=== PATIENT | male | born 1975 | race Caucasian/White ===

== ENCOUNTER → 2017-01-17 | Outpatient (CLI) | payer BC ==
[~2017-01-17] MED LIST: BUDE90AE IH; CIPR500T4 PO; CYCL10TA9 PO; Flexeril; IBUP-1773 PO; IBUP800T26 PO; NAPR-1071 PO; PRD20T PO; SULF-222 PO
== END ==
LOC: RAD 08:17
PROVIDERS: ATTEND Nurse Practitioner
DX: M54.12 Radiculopathy, cervical region (principal)

== ENCOUNTER → 2017-02-28 | Outpatient (CLI) | payer BC | LOC: RAD 08:02 | PROVIDERS: ATTEND Anesthesiology Pain Medicine | DX: Z53.29 Procedure and treatment not carried out because of patient's decision for other reasons (principal); M54.12 Radiculopathy, cervical region; M25.521 Pain in right elbow; M25.511 Pain in right shoulder ==

== ENCOUNTER 2017-03-19 11:10 | Emergency (ER) | payer BC ==
[~2017-03-19] VITALS: Ht 182.9 cm; Wt 108.9 kg
--- NOTE | 2017-03-19 11:32 | ED Cough/URI ---
General Chief Complaint: Cough/Cold/Flu Symptoms Stated Complaint: BODYACHES SOA COUGH FEVER NAUSEA Nursing Triage Note: AMB TO ROOM C/O COUGH, CONGESTION, FEVER,BODY ACHES SINCE SUN. Source: patient Exam Limitations: no limitations History of Present Illness Date Seen by Provider: Mar 19, 2017 Time Seen by Provider: 11:30 Initial Comments To ER with reports of a nonproductive cough, nasal congestion, body aches, MAXIMUM TEMPERATURE 102, nausea since 03/16/17. Has not seen primary care for this. He states that typically when the weather changes as it has been doing he gets pneumonia so that this is his concern Timing/Duration: this morning Severity/Quality: moderate Associated Symptoms: cough, fever/chills, muscle aches, nasal congestion, nasal drainage Allergies and Home Medications Allergies Uncoded Allergies: FESCUE GRASS (Allergy, Mild, 08/30/13) MUSHROOMS (Allergy, Unknown, 04/14/15) Home Medications No Active Prescriptions or Reported Meds Constitutional: see HPI, chills EENTM: see HPI Respiratory: see HPI, cough Genitourinary: no symptoms reported Musculoskeletal: no symptoms reported Skin: no symptoms reported Psychiatric/Neurological: No Symptoms Reported Hematologic/Lymphatic: No Symptoms Reported Past Hzkfteo-Jonwza-Bxhiod Hx Patient Social History Alcohol Use: Occasionally Uses Recreational Drug Use: No Smoking Status: Current Everyday Smoker Type Used: Cigarettes Recent Foreign Travel: No Contact w/Someone Who Travel: No Recent Infectious Disease Expo: No Recent Hopitalizations: No Seasonal Allergies Seasonal Allergies: No Surgeries History of Surgeries: Yes (HERNIA) Respiratory History of Respiratory Disorde: Yes (CHRONIC PNEUMONIA) Cardiovascular History of Cardiac Disorders: No Neurological History of Neurological Disord: No Gastrointestinal History of Gastrointestinal Di: No Musculoskeletal History of Musculoskeletal Dis: No Endocrine History of Endocrine Disorders: No Cancer History of Cancer: No Psychosocial History of Psychiatric Problem: No Physical Exam Vital Signs Vital Signs - First Documented 03/19/17 11:14 Temp 99.8 Pulse 92 Resp 18 B/P (MAP) 147/78 (101) Pulse Ox 98 O2 Delivery Room Air Capillary Refill : Less Than 3 Seconds General Appearance: WD/WN, no apparent distress Eyes: Bilateral Eye Normal Inspection, Bilateral Eye PERRL, Bilateral Eye EOMI HEENT: PERRL/EOMI, normal ENT inspection Neck: non-tender, full range of motion Respiratory: no respiratory distress, no accessory muscle use Cardiovascular: regular rate, rhythm, no murmur Gastrointestinal: normal bowel sounds, non tender, soft Extremities: normal range of motion, non-tender, normal inspection Neurologic/Psychiatric: alert, normal mood/affect, oriented x 3 Skin: normal color, warm/dry Laceration Repair : Suture Size: 5-0 Progress/Results/Core Measures Suspected Sepsis Recent Fever Within 48 Hours: No Infection Criteria Present: None New/Unexplained Altered Menta: No Sepsis Screen: No Definite Risk Sepsis Diagnosis: SIRS Temperature:99.8 Pulse: 92 Respiratory Rate: 18 Blood Pressure 147 /78 Mean: 101 Results/Orders Micro Results Microbiology 03/19/17 Influenza Types A,B Antigen (JARVSI) - Final, Complete My Orders Orders - BRE GOVEA APRN Influenza A And B Antigens (03/19/17 11:29) Chest Pa/Lat (2 View) (03/19/17 11:29) Vital Signs/I&O Vital Sign - Last 12Hours 03/19/17 11:14 Temp 99.8 Pulse 92 Resp 18 B/P (MAP) 147/78 (101) Pulse Ox 98 O2 Delivery Room Air Capillary Refill : Less Than 3 Seconds Blood Pressure Mean: 101 Departure Impression Impression: Primary Impression: Influenza-like illness Disposition: 01 HOME, SELF-CARE Condition: Stable Departure-Patient Inst. Decision time for Depature: 12:25 Referrals: [facility] [place] (PCP/Family) Primary Care Physician Patient Instructions: Flu Add. Discharge Instructions: 1. Tylenol and Motrin for any fevers 2. Drink plenty of fluids to stay hydrated 3. Expect symptoms to stay for about 5-7 days. Use the cough medication which will also help with nausea as directed. All discharge instructions reviewed with patient and/or family. Voiced understanding. Scripts Promethazine HCl/Codeine (Promethazine-Codeine Syrup) 118 Ml Syrup 5-7.5 ML PO Q6H Y for COUGH, #120 ML Prov: BRE GOVEA APRN 03/19/17 Work/School Note: Local Medical Staff Listing, Work Release Form Date Seen in the Emergency Department: Mar 19, 2017 Return to Work: Mar 22, 2017 BRE GOVEA APRN Mar 19, 2017 11:32
--- OUTSIDE RECORDS SUMMARY | 2017-03-19 12:01 | XMS REPORT | Continuity of Care Document ---
Author Author [facility] Organization [facility] Address Unknown Phone Unavailable Allergies Active Description Code Type Severity Reaction Onset Reported/Identified Relationship to Patient Clinical Status Yes FESCUE GRASS FESCUE GRASS Mild N/A 08/30/2013 Yes MUSHROOMS MUSHROOMS Unknown N/A 04/14/2015 Medications There is no data. Problems Date Dx Coded Attending Type Code Diagnosis Diagnosed By 08/30/2013 GAYATHRI RESENDEZ, RADHA Lacey Ot 682.3 CELLULITIS OF ARM 08/30/2013 RADHA TRINH MD Ot 782.0 SKIN SENSATION DISTURB 08/31/2013 RADHA TRINH MD Ot 729.5 PAIN IN LIMB 08/31/2013 RADHA TRINH MD Ot 782.0 SKIN SENSATION DISTURB 04/14/2015 BRE GOVEA APRN Ot F17.210 NICOTINE DEPENDENCE, CIGARETTES, UNCOMPL 04/14/2015 BRE GOVEA SHEET MILL SUPERVISOR Ot S61.211A LACERATION W/O FB OF L IDX FNGR W/O OLIVIA 04/14/2015 BRE GOVEA APRN Ot W26.0XXA CONTACT WITH KNIFE, INITIAL ENCOUNTER 04/14/2015 BRE GOVEA APRN Ot Y92.[address] 04/14/2015 BRE GOVEA SHEET MILL SUPERVISOR Ot Y99.8 OTHER EXTERNAL CAUSE STATUS 04/14/2015 BRE GOVEA APRN Ot Z23 ENCOUNTER FOR IMMUNIZATION 08/19/2015 BRYANT ZAMORA MD Ot F17.210 NICOTINE DEPENDENCE, CIGARETTES, UNCOMPL 08/19/2015 BRYANT ZAMORA MD Ot M54.5 LOW BACK PAIN 08/19/2015 BRYANT ZAMORA MD Ot N50.8 OTHER SPECIFIED DISORDERS OF MALE GENITA 08/21/2015 BRYANT ZAMORA MD Ot F17.210 NICOTINE DEPENDENCE, CIGARETTES, UNCOMPL 08/21/2015 BRYANT ZAMORA MD Ot M54.5 LOW BACK PAIN 08/21/2015 SERA RESENDEZ, BRYANT Agarwal Ot N50.8 OTHER SPECIFIED DISORDERS OF MALE GENITA 08/22/2015 EL DOMINGUEZ MD Ot F17.210 NICOTINE DEPENDENCE, CIGARETTES, UNCOMPL 08/22/2015 EL DOMINGUEZ MD Ot I86.1 SCROTAL VARICES 08/22/2015 EL DOMINGUEZ MD Ot N39.0 URINARY TRACT INFECTION, SITE NOT SPECIF 08/23/2015 EL DOMINGUEZ MD Ot I86.1 SCROTAL VARICES 08/23/2015 EL DOMINGUEZ MD Ot N39.0 URINARY TRACT INFECTION, SITE NOT SPECIF 08/23/2015 EL DOMINGUEZ MD Ot F17.210 NICOTINE DEPENDENCE, CIGARETTES, UNCOMPL 08/23/2015 EL DOMINGUEZ MD Ot I86.1 SCROTAL VARICES 08/23/2015 EL DOMINGUEZ MD Ot N39.0 URINARY TRACT INFECTION, SITE NOT SPECIF 08/28/2015 EL DOMINGUEZ MD Ot F17.210 NICOTINE DEPENDENCE, CIGARETTES, UNCOMPL 08/28/2015 EL DOMINGUEZ MD Ot I86.1 SCROTAL VARICES 08/28/2015 EL DOMINGUEZ MD Ot N39.0 URINARY TRACT INFECTION, SITE NOT SPECIF 12/20/2016 BRAD SHEARER MD Ot M25.511 PAIN IN RIGHT SHOULDER 12/20/2016 BRAD SEHARER MD Ot S46.911A STRAIN [facility]/TEND AT [facility]/ A 12/20/2016 BRAD SHEARER MD Ot X50.0XXA OVEREXERTION FROM STRENUOUS MOVEMENT OR 12/23/2016 BRAD SHEARER MD Ot M25.511 PAIN IN RIGHT SHOULDER 12/23/2016 BRAD SHEARER MD Ot S46.911A [facility] AT [facility]/ A 12/23/2016 BRAD SHEARER MD Ot X50.0XXA OVEREXERTION FROM STRENUOUS MOVEMENT OR 01/23/2017 ZULMA PANCHAL Ot M54.12 RADICULOPATHY, CERVICAL REGION 02/20/2017 ZULMA PANCHAL Ot M54.12 RADICULOPATHY, CERVICAL REGION 02/28/2017 ZULMA PANCHAL CAGE CASHIER Ot M54.12 RADICULOPATHY, CERVICAL REGION 02/28/2017 ZULMA PANCHAL CAGE CASHIER Ot M54.12 RADICULOPATHY, CERVICAL REGION 03/03/2017 MYESHA BUTLER MD Ot M25.511 PAIN IN RIGHT SHOULDER 03/03/2017 MYESHA BUTLER MD, Ot M25.521 PAIN IN RIGHT ELBOW 03/03/2017 MYESHA BUTLER MD Ot M54.12 RADICULOPATHY, CERVICAL REGION 03/03/2017 CARRIE RESENDEZ, MYESHA Layne Ot Z53.29 PROC/TRTMT NOT CRD OUT BEC PT DECISION F Procedures There is no data. Results Test Result Range Influenza virus A and B antigen detection - 03/19/17 11:29 FLU RESULT NEGATIVE FOR INFLUENZA A AND B ANTIGENS BY IA NRG Encounters ACCT No. Visit Date/Time Discharge Status Pt. Type Provider Facility Loc./Unit Complaint [id number] 02/28/2017 08:02:00 02/28/2017 23:59:59 CLS Outpatient MYESHA BUTLER MD [facility] RAD M54.12 [id number] 01/17/2017 08:17:00 01/17/2017 23:59:59 CLS Outpatient ZULMA PANCHAL CAGE CASHIER [facility] RAD M54.12 CERVICAL RADICULOPATHY [id number] 12/20/2016 22:06:00 12/20/2016 23:19:00 DIS Emergency BRAD SHEARER MD [facility] ER R SHOULDER PAIN [id number] 08/22/2015 15:11:00 08/22/2015 16:35:00 DIS Emergency EL DOMINGUEZ MD [facility] ER TESTICULAR PAIN [id number] 08/19/2015 10:36:00 08/19/2015 12:40:00 DIS Emergency BRYANT ZAMORA MD [facility] ER BACK PAIN, TESTICLE PAIN [id number] 04/14/2015 20:46:00 04/14/2015 21:49:00 DIS Emergency BRE GOVEA APRN [facility] ER FINGER LAC [id number] 08/31/2013 21:22:00 08/31/2013 22:18:00 DIS Emergency GAYATHRI RESENDEZ, RADHA Lacey [facility] ER R INDEX FINGER,MIDDLE FINGER NUMBNESS [id number] 08/30/2013 00:34:00 08/30/2013 01:53:00 DIS Emergency GAYATHRI RESENDEZ, RADHA Lacey [facility] ER R ARM NUMBNESS [id number] 03/19/2017 11:12:00 ACT Emergency BRE GOVEA APRN [facility] ER BODYACHES SOA COUGH FEVER NAUSEA [id number] 03/18/2017 15:40:00 ACT Outpatient ZULMA PANCHAL [facility] REHAB CERVIAL RADICLOPATHY
--- NOTE | 2017-03-19 12:20 | Diagnostic Imaging Report ---
EXAMINATION: PA and lateral chest obtained at 11:15. INDICATION: Cough. There are no prior studies available for comparison. The heart size is within normal limits. The lungs are clear. There is no for failure, pneumonia or for a pleural effusion. There may be minimal scar formation of the periphery of the right lung base. The perihilar markings are somewhat prominent. This is probably related to the pulmonary vessels alone and not to an underlying abnormality. If previous studies are available they would be helpful for comparison. The mediastinum is not widened. The osseous structures are intact. IMPRESSION: There is no evidence for acute cardiopulmonary abnormality. If previous studies are available they would be helpful for comparison. Dictated by: Dictated on workstation # [id number]
[2017-03-19] MEDS ORDERED: CODE118S2 PO (12:26)
[2017-03-19 12:39] VITALS: BP 147/78
== END 2017-03-19 12:39 | disposition home or self-care (01) ==
LOC: EDUNIT# 11:10 → ER 11:12
DX: J11.1 Influenza due to unidentified influenza virus with other respiratory manifestations (principal); F17.210 Nicotine dependence, cigarettes, uncomplicated; Z87.01 Personal history of pneumonia (recurrent)
CPT/HCPCS: 71046; 87804; 99282

== ENCOUNTER 2017-04-16 14:33 | Outpatient (RCR) | payer BC ==
[~2017-04-16 14:33] MED LIST changes: +CODE118S2 PO
== END 2017-04-21 | disposition home or self-care (01) ==
PROVIDERS: ATTEND Nurse Practitioner
DX: M54.12 Radiculopathy, cervical region (principal)

== ENCOUNTER → 2021-12-10 | Outpatient (CLI) | payer BC, OTHER ==
[~2021-12-10] MED LIST changes: -CIPR500T4 PO; +CIPR500T5 PO; -CODE118S2 PO; +CODE118S4 PO; +CYCL10TA25 PO; -CYCL10TA9 PO
--- NOTE | 2021-12-10 12:59 | Diagnostic Imaging Report ---
INDICATION: Chronic cough. EXAMINATION: 2 view chest 12/10/2021. COMPARISON: 03/19/2017. FINDINGS: Heart and pulmonary vasculature normal. Chronic coarsened interstitial markings in the lower lung stable from previous. There are no infiltrates or effusions. No pneumothorax. IMPRESSION: 1. No acute process. Dictated by: Dictated on workstation # [id number]
== END ==
LOC: RAD 11:33
PROVIDERS: ATTEND Nurse Practitioner Family
DX: R05.3 Chronic cough (principal)
CPT/HCPCS: 71046

== ENCOUNTER → 2023-01-13 | Outpatient (CLI) | payer BC ==
--- NOTE | 2023-01-13 16:33 | Diagnostic Imaging Report ---
EXAMINATION: Chest 2 view HISTORY: Pneumonia COMPARISON: 12/10/2021 FINDINGS: Heart size and pulmonary vasculature are normal. There is linear atelectasis within the right midlung. No consolidation, pleural effusion, or pneumothorax. Degenerative changes of the thoracic spine. Osseous structures are otherwise intact. IMPRESSION: 1. No acute radiographic abnormality in the chest. Dictated by: Dictated on workstation # [id number]
== END ==
LOC: RAD 15:53
PROVIDERS: ATTEND Nurse Practitioner Family
DX: J18.9 Pneumonia, unspecified organism (principal)
CPT/HCPCS: 71046